=== PATIENT | male | born 1985 | race Caucasian/White ===

== ENCOUNTER 2017-12-31 11:47 | Emergency (ER) | payer SELFPAY ==
[2017-12-31 11:53] VITALS: BP 145/85
[2017-12-31] MEDS ORDERED: BUFFERED LIDOCAINE 10 ML SYRINGE ONE (12:05)
--- NOTE | 2017-12-31 12:30 | ED Physician Documentation ---
PD HPI UPPER EXT INJURY - Stated complaint Stated Complaint: LEFT POINTY FING LAC - Chief complaint Chief Complaint: Laceration - History obtained from History obtained from: Patient - History of Present Illness Location: Left, Finger Type of injury: Laceration Where injury occurred: Work Timing - onset: Today Timing - details: Abrupt onset Severity Comments: moderate Improved by: Other Worsened by: Moving Associated symptoms: No: Weakness, Numbness, Tingling, Swelling Contributing factors: No: Anticoagulated, Prior ortho surgery, Prosthetic joint Similar symptoms before: Has not had sx before Recently seen: Not recently seen Review of Systems Constitutional: denies: Fever Skin: reports: Laceration (s) Musculoskeletal: reports: Extremity pain Neurologic: denies: Focal weakness Immunocompromised: denies: Chemotherapy PD PAST MEDICAL HISTORY - Past Medical History Past Medical History: No - Past Surgical History Past Surgical History: No - Present Medications Home Medications: Ambulatory Orders Medication Instructions Recorded Confirmed No Known Home Medications 12/31/17 12/31/17 - Allergies Allergies/Adverse Reactions: Allergies Allergy/AdvReac Type Severity Reaction Status Date / Time No Known Drug Allergies Allergy Verified 12/31/17 11:53 - Social History Does the pt smoke?: No Smoking Status: Never smoker Does the pt drink ETOH?: No Does the pt have substance abuse?: No - Immunizations Immunizations are current?: Yes - POLST Patient has POLST: No PD ED PE NORMAL - General General: Alert and oriented X 3, No acute distress - HEENT HEENT: Atraumatic, PERRL, EOMI - Derm Derm: Other (Irregular 3 cm laceration to the left Pointer finger) PD ED PE EXPANDED - Extremities VIKASH UE/Hands Visual: 1 - laceration (Irregular deep laceration of the radial side of the left pointer finger which extends to the volar surface.The patient has full active range of motion of all fingers. The patient has normal sensation. The patient has normal cap refill and normal radial pulse. The patient has no bony tenderness in the hand or wrist. The wound was explored and there is no evidence of foreign body or tendon laceration. The wound was 3 cm) Results - Vitals Vitals: Vital Signs - 24 hr 12/31/17 11:51 Temperature 36.6 C Heart Rate 63 Respiratory 16 Rate Blood Pressure 145/85 H O2 Saturation 99 Oxygen O2 Source Room air Procedures - Laceration (location) Finger left Length in cm: 3 Wound type: Irregular Neurovascular status: Sensory intact, Motor intact, Vascular intact Tendon involvement: Tendon intact Anesthesia: Lidocaine 1% Wound Preparation: Betadine, Irrigated copiously NS Skin layer closure: Nylon, Interrupted (The patient had horizontal mattress sutures placed), Size #-0 - enter number (4) Other: Patient tolerated well, No complications, Neurovascular intact, Dressing applied, Tetanus UTD Complexity: Simple PD MEDICAL DECISION MAKING - ED course ED course: The wound was closed using horizontal mattress sutures. There is no evidence of foreign body or tendon involvement. I recommended that the patient have the sutures removed in 7-10 days. I discussed with the patient appropriate ways to minimize hand infections. I discussed warning signs for infection and recommended returning to the emergency department immediately for any worsening or any concerns. Departure - Departure Disposition: 01 Home, Self Care Clinical Impression: Finger laceration Qualifiers: Encounter type: initial encounter Finger: unspecified finger Damage to nail status: without damage Foreign body presence: without foreign body Laterality: left Qualified Code(s): S61.219A - Laceration without foreign body of unspecified finger without damage to nail, initial encounter Condition: Good Instructions: ED Laceration All, ED Laceration Hand Comments: Please have your primary care physician remove your stitches in 7-10 days. Please return to the emergency department immediately for signs of infection, worsening symptoms or any concerns.
== END 2017-12-31 12:46 | disposition home or self-care (01) ==
LOC: ED 11:47
DX: S61.211A Laceration without foreign body of left index finger without damage to nail, initial encounter (principal); W26.0XXA Contact with knife, initial encounter; Y99.0 Civilian activity done for income or pay
CPT/HCPCS: 12002; 99282; 99283